=== PATIENT | female | born 1980 | race Caucasian/White ===

== ENCOUNTER 2017-04-13 09:51 | Inpatient (IN) | payer MEDICAID ==
[~2017-04-13] VITALS: Ht 147.3 cm; Wt 80.7 kg
[~2017-04-13 09:51] MED LIST: ACET-787 PO; ALPR2TAB1 PO; ATEN25TA7 PO; METO5SOL19 PO
[2017-04-13 09:54] VITALS: BP 140/91
--- NOTE | 2017-04-13 09:54 | NUR ---
Pt biba and placed in bed 1.
--- NOTE | 2017-04-13 10:00 | NUR ---
36/F biba found right outside of [facility]. Pt was seen at [facility] last night for back pain, according to EMS patient did not c/o to [facility] she was suicidal. Pt was discharged from [facility] and called 911 and requested to come to [facility] with complaints of suicidal ideation. Pt placed was placed on a 5150 by [facility]. Pt c/o having suicidal thoughts. Pt denies hearing voices. Pt states "I'm having an anxiety attack." Patient is cooperative, slightly anxious, follows commands, AOX4, clear speech. Patient in hospital gown. Personal belongings removed from room and stored in security office. Patient states desire to harm self. Potentially harmful items removed from room. Under direct observation of EMT Dago. Pt is waiting to be medically cleared to be transferred to a pyschiatric facility. VSS. Warm blanket provided. All needs addressed.
[2017-04-13 11:01] LABS: APPEARANCE,URINE CLEAR (CLEAR); BILIRUBIN,URINE NEGATIVE (NEGATIVE); BLOOD, URINE 3+ (NEGATIVE); LEUKOCYTE ESTERASE ,URINE NEGATIVE (NEGATIVE); NITRITE, URINE NEGATIVE (NEGATIVE); UGLUCOSE NEGATIVE (NEGATIVE)
[2017-04-13 11:04] LABS: COLOR,URINE STRAW (YELLOW)
--- NOTE | 2017-04-13 11:07 | NUR ---
lab at bedside for blood draw.
[2017-04-13 11:12] LABS: RBC,URINE 3-10 (FEW) /HPF (0-5); WBC,URINE 0-5 (RARE) /HPF (0-5)
[2017-04-13 11:19] LABS: BARBITURATE, URINE POS. ng/ml (NEG <=200); BENZODIAZEPINE, URINE NEG. ng/mL (NEG <=200); CANNABINOID, URINE NEG. ng/mL (NEG <=50); COCAINE, URINE NEG. ng/mL (NEG <=300); OPIATE, URINE NEG. ng/mL (NEG <=2000); PHENCYCLIDINE SCREEN,URINE NEG. ng/mL (NEG <=25)
[2017-04-13 11:26] LABS: BASOPHILS # (AUTO) 0.1 K/uL (0.00-0.22); BASOPHILS % (AUTO) 2.4 % (0.0-2.0); EOSINOPHILS # (AUTO) 0.3 K/uL (0-0.4); EOSINOPHILS % (AUTO) 5.6 % (0.0-4.0); HEMATOCRIT 33.4 % (36-48); HEMOGLOBIN 10.6 g/dL (12.0-16.0); LYMPHOCYTES # (AUTO) 1.7 K/uL (2.5-16.5); LYMPHOCYTES % (AUTO) 29.9 % (20.5-51.1); MEAN CORPUSCULAR HEMOGLOBIN 26 pg (27-31); MEAN CORPUSCULAR HGB CONC 32 g/dL (33-37); MEAN CORPUSCULAR VOLUME 81 fL (80-94); MONOCYTES # (AUTO) 0.4 K/uL (0.8-1.0); MONOCYTES % (AUTO) 7.4 % (1.7-9.3); NEUTROPHILS % (AUTO) 54.7 % (42.2-75.2); PLATELET COUNT (AUTO) 178 K/uL (140-450); RED BLOOD CELL COUNT(AUTO) 4.16 MIL/uL (4.20-5.40); RED CELL DISTRIBUTION WIDTH 14.3 % (11.6-13.7); WHITE BLOOD COUNT (AUTO) 5.5 K/uL (4.8-10.8)
[2017-04-13 11:37] LABS: ANION GAP 12.7 (8-16); CHLORIDE 104 mmol/L (98-107); CREATININE 0.6 mg/dL (0.6-1.3); GFR ARICAN-AMERICAN 144 mL/min (>90); GLUCOSE 89 mg/dL (74-106); POTASSIUM 3.7 mmol/L (3.5-5.1); SODIUM SERUM 142 mmol/L (136-145); UREA NITROGEN, BLOOD 8 mg/dL (7-18)
[2017-04-13] MEDS ORDERED: HALOPERIDOL IM 5 MG/ML VIAL IVP ONE (11:50)
[2017-04-13] MEDS ORDERED: diphenhydrAMINE 50 MG/ML VIAL IVP ONE (11:50)
[2017-04-13 11:52] LABS: ALBUMIN 3.8 g/dL (3.4-5.0); ASPARTATE AMINOTRANSFERASE 15 U/L (15-37); TOTAL BILIRUBIN 0.2 mg/dL (0.0-1.0)
--- NOTE | 2017-04-13 11:55 | NUR ---
Security called to bedside. Pt is yelling, standing outside of her room yelling "I'm in pain! No one is listening to me!"
[2017-04-13 11:56] LABS: SALICYLATE < 2.8 mg/dL (2.8-20.0)
[2017-04-13 11:57] LABS: ACETAMINOPHEN < 0.5 ug/ml (10-30)
[2017-04-13] MEDS ORDERED: diphenhydrAMINE 50 MG/ML VIAL IM ONE ×2 (12:05→12:35)
[2017-04-13] MEDS ORDERED: HALOPERIDOL IM 5 MG/ML VIAL IM ONE (12:05)
--- NOTE | 2017-04-13 12:05 | NUR ---
Security at bedside. Pt has been medicated as ordered. Pt continues to yell and cry. Sitter at bedside. Pt is back in bed yelling. Dr. Metz is aware.
--- NOTE | 2017-04-13 12:21 | NUR ---
Pt now resting quietly and comfortably. No distress noted.
--- NOTE | 2017-04-13 12:50 | NUR ---
Patient appears to be resting comfortably in bed. VSS.
--- NOTE | 2017-04-13 14:37 | NUR ---
Patient appears to be resting comfortably in bed. VSS.
--- NOTE | 2017-04-13 14:55 | NUR ---
Pt up to the bathroom with steady gait.
--- NOTE | 2017-04-13 15:10 | NUR ---
Pt noted resting comfortably in bed 1. No distress noted.
--- NOTE | 2017-04-13 16:15 | NUR ---
Pt ambulating to restroom with steady gait. VSS.
--- NOTE | 2017-04-13 17:27 | NUR ---
Pt continues to be resting comfortably at this time. VSS.
--- NOTE | 2017-04-13 18:30 | NUR ---
Patient appears to be resting comfortably in bed sleeping. VSS.
--- NOTE | 2017-04-13 19:26 | NUR ---
Pt report given to Mitch TALAMANTES. Transfer of care at this time.
--- NOTE | 2017-04-13 20:00 | NUR ---
PATIENT RESTING AT THIS TIME. NO SIGNS OF DISTRESS.
--- NOTE | 2017-04-13 21:00 | NUR ---
PATIENT RESTING AT THIS TIME. NO SIGNS OF DISTRESS.
--- NOTE | 2017-04-13 21:05 | NUR ---
5150 PPWK COMPLETED AND PLACED IN PT CHART.
--- NOTE | 2017-04-13 22:00 | NUR ---
PATIENT RESTING AT THIS TIME. NO SIGNS OF DISTRESS.
--- NOTE | 2017-04-13 23:00 | NUR ---
PATIENT RESTING AT THIS TIME. NO SIGNS OF DISTRESS.
[2017-04-13] MEDS ORDERED: ONDANSETRON 4 MG/2 ML VIAL IVP PRN (23:10)
[2017-04-13] MEDS ORDERED: LORazepam 2 MG/ML VIAL IVP PRN (23:10)
--- NOTE | 2017-04-14 | NUR ---
PATIENT RESTING AT THIS TIME. NO SIGNS OF DISTRESS.
--- NOTE | 2017-04-14 01:34 | NUR ---
APatient will be admitted to care of DR. MONTAÑO. Admited to M/S. Will go to room 109B. Belongings list completed. Report to ISHA TALAMANTES.
[2017-04-14 02:00] VITALS: BP 143/82
--- NOTE | 2017-04-14 02:00 | NUR ---
RECEIVED PT FROM ER PT IN STABLE CONDITION. NO S/S OF DISTRESS NOTED. PT AAOX4 ON ROOM AIR. PT DOES NOT HAVE IV ACCESS. SKIN IS INTACT. RESPIRATIONS ARE EVEN AND UNLABORED. SKIN IS WARM AND DRY TO TOUCH, COLOR WNL. BOWEL SOUNDS ARE PRESENT AND ACTIVE. LUNGS CLEAR BILATERALLY. PT STATED SHE DOES FEEL SUICIDAL AND "IT JUST IS AN OVERWHELMING FEELING." I ASKED PT IF SHE HAD A PLAN TO CARRY OUT PT STATED, "I DO NOT HAVE A PLAN." 1:[address] ALL SAFETY PRECAUTIONS MET, NEEDS MET, PT ORIENTED TO ROOM
--- NOTE | 2017-04-14 02:05 | NUR ---
PAGED DR. JACKSON BECAUSE PT STATES, "I AM IN A LOT OF PAIN IN MY BACK AND I NEED MY PERCOCET,I ALSO NEED MY ATIVAN NOW."
--- NOTE | 2017-04-14 02:10 | NUR ---
DR. JACKSON PAGED BACK WITH ORDERS, WILL CARRY OUT
[2017-04-14] MEDS: oxyCODONE/APAP 5/325 MG 1 TAB TAB PO PRN ×4 (02:14→20:30)
[2017-04-14] MEDS: LORazepam 1 MG TAB PO PRN ×3 (02:15→19:53)
--- NOTE | 2017-04-14 03:00 | NUR ---
PT RESTING IN BED COMFORTABLY NO S/S OF DISTRESS. NO SUICIDAL IDEATION AT THIS TIME, NO PLAN.
--- NOTE | 2017-04-14 04:30 | NUR ---
PT RESTING IN BED COMFORTABLY NO S/S OF DISTRESS. NO SUICIDAL IDEATION AT THIS TIME, NO PLAN.
--- NOTE | 2017-04-14 07:20 | NUR ---
REPORT GIVEN TO DIANE TALAMANTES FOR CONTINUITY OF CARE, PT IN STABLE CONDITION.
--- NOTE | 2017-04-14 07:25 | NUR ---
RECEIVED PATIENT REPORT AT BEDSIDE. PATIENT AWAKE AND ORIENTED. NO S/S OF DISTRESS. PATIENT ON ROOM AIR. PATIENT CALM AND COOPERATIVE AT THIS TIME. PATIENT WITH 1:1 SITTER
[2017-04-14 07:28] LABS: BASOPHILS # (AUTO) 0.1 K/uL (0.00-0.22); BASOPHILS % (AUTO) 1.5 % (0.0-2.0); EOSINOPHILS # (AUTO) 0.3 K/uL (0-0.4); EOSINOPHILS % (AUTO) 3.4 % (0.0-4.0); HEMATOCRIT 33.3 % (36-48); HEMOGLOBIN 10.7 g/dL (12.0-16.0); LYMPHOCYTES # (AUTO) 2.3 K/uL (2.5-16.5); MEAN CORPUSCULAR HEMOGLOBIN 26 pg (27-31); MEAN CORPUSCULAR HGB CONC 32 g/dL (33-37); MEAN CORPUSCULAR VOLUME 81 fL (80-94); MONOCYTES # (AUTO) 0.7 K/uL (0.8-1.0); MONOCYTES % (AUTO) 9.3 % (1.7-9.3); NEUTROPHILS # (AUTO) 4.1 K/uL (1.8-7.7); NEUTROPHILS % (AUTO) 54.8 % (42.2-75.2); PLATELET COUNT (AUTO) 181 K/uL (140-450); WHITE BLOOD COUNT (AUTO) 7.5 K/uL (4.8-10.8)
[2017-04-14 08:00] VITALS: BP 142/70
[2017-04-14] MEDS: ALPRAZolam 0.5 MG TAB PO SCH ×3 (08:23→16:26)
[2017-04-14] MEDS: ATENOLOL 25 MG TAB PO SCH (08:23)
[2017-04-14 08:48] LABS: ANION GAP 11.8 (8-16); CARBON DIOXIDE 29.8 mmol/L (21-32); CREATININE 0.6 mg/dL (0.6-1.3); POTASSIUM 3.6 mmol/L (3.5-5.1)
[2017-04-14] MEDS ORDERED: HYDROcodone/APAP 10/325 MG 1 TAB TAB PO SCH (09:00)
--- NOTE | 2017-04-14 09:18 | NUR ---
PATIENT HAS BEEN SCREENED AND CATEGORIZED MODERATE NUTRITION RISK. PATIENT WILL BE SEEN WITHIN 3-5 DAYS OF ADMISSION. 04/15/17-04/17/[address]
[2017-04-14 16:00] VITALS: BP 139/81
--- NOTE | 2017-04-14 18:30 | NUR ---
PATIENT BEING EVALUATED BY DR PASCUAL
[2017-04-14] MEDS ORDERED: oxyCODONE/APAP 5/325 MG 1 TAB TAB PO SCH (19:00)
--- NOTE | 2017-04-14 19:15 | NUR ---
RECD. PATIENT RESTING SITTING ON BED, AWAKE, A/OX4. RESPIRATION EVEN AND UNLABORED. NO IV LINE. REFUSED TO HAVE ONE INSERTED,STATED SHE CAN DRINK WATER. INQUIRED IF SHE STILL HAD INTENTION OF HURTING HERSELF, VERBALIZED YES, BUT NOT HEARING VOICES BUT FEELING LOTS OF ANXIETY, WORRIED ABOUT HIS SON. VERY EAGER TO TAKE PERCOCET FOR HER LOWER BACK PAIN, ASSURED WILL FOLLOW UP WITH PHARMACY AND WILL GIVE HER ONCE APPROVED. MORAL ENCOURAGEMENT GIVEN, PLAN OF CARE FOR THE SHIFT DISCUSSED. VERBALIZED UNDERSTANDING. CLAIMED BACK PAIN 09/05, WILL MEDICATE ORDERED.
--- NOTE | 2017-04-14 19:25 | NUR ---
PATIENT REPORT GIVEN AT BEDSIDE. PATIENT ENDORSED IN STABLE CONDITION
--- NOTE | 2017-04-14 19:26 | NUR ---
FOLLOW UP WITH PHARMACY TO APPROVE PERCOCET.
--- NOTE | 2017-04-14 19:53 | NUR ---
WITH ANXIETY, MEDICATED WITH ATIVAN 1 MG. PO.
--- NOTE | 2017-04-14 20:20 | NUR ---
INFORMED DR. MONTAÑO ORDER FOR PERCOCET NEED TO BE CHANGED FROM PRN AND SCHEDULED TO PRN, APPROVED.
--- NOTE | 2017-04-14 20:30 | NUR ---
HAPPY, PERCOCET GIVEN FOR HER BACK PAIN GIVEN.
--- NOTE | 2017-04-14 20:51 | NUR ---
WENT TO BR TO VOID 4 TIMES ALREADY, DENIES SMALL NOR PAINFUL URINATION.
--- NOTE | 2017-04-14 20:53 | NUR ---
DECREASED ANXIETY NOTED.
[2017-04-14] MEDS: ZOLPIDEM 10 MG TAB PO SCH (21:13)
--- NOTE | 2017-04-14 21:15 | NUR ---
WANTS TO BE ABLE TO SLEEP GOOD TONIGHT, MEDICATED WITH AMBIEN ORDERED.
--- NOTE | 2017-04-15 00:30 | NUR ---
AMBULATED TO BR TO VOID. BACK TO BED AFTER VOIDING. BACK TO SLEEP.
[2017-04-15 00:37] VITALS: BP 121/62
[2017-04-15] MEDS: oxyCODONE/APAP 5/325 MG 1 TAB TAB PO PRN ×3 (04:00→17:07)
--- NOTE | 2017-04-15 04:00 | NUR ---
WOKE UP, REQUESTED FOR PAIN MEDICATION. AMBULATED TO BR TO VOID, WENT BACK TO SLEEP.
[2017-04-15] MEDS: METOCLOPRAMIDE 10 MG/10 ML SYRP UDC PO PRN (05:03)
--- NOTE | 2017-04-15 05:03 | NUR ---
COMPLAINT OF STOMACH UPSET, MEDICATED WITH REGLAN ORDERED.
--- NOTE | 2017-04-15 06:03 | NUR ---
NO COMPLAINT OF STOMACH UPSET, SLEEPING COMFORTABLY.
[2017-04-15] MEDS: LORazepam 1 MG TAB PO PRN ×2 (06:09→21:39)
--- NOTE | 2017-04-15 06:30 | NUR ---
HOUSE FELLOW UNABLE TO GET SPECIMEN FOR AM LAB TEST, PATIENT HARD STICK.
--- NOTE | 2017-04-15 07:16 | NUR ---
NO NOTED SUICIDAL BEHAVIOR NOTED DURING SHIFT. CONDITION REMAIN STABLE. NEW SITTER MONITORING NEAR BEDSIDE. ENDORSED TO AM NURSES FOR CONTINUITY OF CARE.
--- NOTE | 2017-04-15 07:18 | NUR ---
PATIENT SEEN LYING COMFORTABLE ON BED.PATIENT IS COOPERATIVE AND CALM AT THIS TIME. PATIENT IS ON 1:1 OBSERVATION FOR SUICIDAL IDEATION. ALL SAFETY MEASURES IMPLEMENTED. WILL CONTINUE PATIENT TO MONITOR.
[2017-04-15 08:00] VITALS: BP 126/70
[2017-04-15] MEDS: ALPRAZolam 0.5 MG TAB PO SCH ×3 (08:55→17:57)
[2017-04-15] MEDS: ATENOLOL 25 MG TAB PO SCH (08:56)
[2017-04-15] MEDS: ACETAMINOPHEN 325 MG TAB PO PRN (08:57)
[2017-04-15 10:56] LABS: BASOPHILS # (AUTO) 0.1 K/uL (0.00-0.22); BASOPHILS % (AUTO) 0.6 % (0.0-2.0); EOSINOPHILS # (AUTO) 0.1 K/uL (0-0.4); EOSINOPHILS % (AUTO) 1.1 % (0.0-4.0); HEMATOCRIT 33.9 % (36-48); LYMPHOCYTES # (AUTO) 1.2 K/uL (2.5-16.5); LYMPHOCYTES % (AUTO) 13.1 % (20.5-51.1); MEAN CORPUSCULAR HEMOGLOBIN 26 pg (27-31); MEAN CORPUSCULAR HGB CONC 33 g/dL (33-37); MEAN CORPUSCULAR VOLUME 81 fL (80-94); MONOCYTES # (AUTO) 0.6 K/uL (0.8-1.0); MONOCYTES % (AUTO) 6.4 % (1.7-9.3); NEUTROPHILS # (AUTO) 7.5 K/uL (1.8-7.7); NEUTROPHILS % (AUTO) 78.8 % (42.2-75.2); PLATELET COUNT (AUTO) 196 K/uL (140-450); RED BLOOD CELL COUNT(AUTO) 4.18 MIL/uL (4.20-5.40); RED CELL DISTRIBUTION WIDTH 14.1 % (11.6-13.7); WHITE BLOOD COUNT (AUTO) 9.5 K/uL (4.8-10.8)
--- NOTE | 2017-04-15 11:00 | NUR ---
PATIENT IN BED SLEEPING. NO S/S OF DISTRESS NOTED.
[2017-04-15 11:04] LABS: ANION GAP 11.9 (8-16); CARBON DIOXIDE 30.1 mmol/L (21-32); CREATININE 0.6 mg/dL (0.6-1.3)
--- NOTE | 2017-04-15 13:00 | NUR ---
PATIENT IN BED SLEEPING. NO S/S OF DISTRESS NOTED.
[2017-04-15 16:00] VITALS: BP 141/90
--- NOTE | 2017-04-15 16:00 | NUR ---
PATIENT CALM AND COLLECTED. NO S/S DISTRESS NOTED
--- NOTE | 2017-04-15 19:25 | NUR ---
PATIENT REPORT GIVEN AT BEDSIDE. PATIENT ENDORSED IN STABLE CONDITION.
--- NOTE | 2017-04-15 19:26 | NUR ---
PATIENT IS CURRENTLY AWAKE ALERT EATING DINNER HAS NO IV LINE AT THIS TIME.WILL CONTINUE TO MONITOR.
--- NOTE | 2017-04-15 19:45 | NUR ---
Patient's Plan of Care was discussed and reviewed with EDITOR PUBLICATIONS: JOAQUIM CASTAÑEDA
--- NOTE | 2017-04-15 19:55 | NUR ---
PATIENT COMPLAINS OF FEELING NAUSEATED AND HAS AN ORDER FOR ZOFRAN BUT HAS NO IV LINE PATIENT AGREED TO HAVE AN IV LINE RESTARTED SO SHE CAN RECEIVE THE ZOFRAN.
[2017-04-15 20:00] VITALS: BP 125/73
--- NOTE | 2017-04-15 20:00 | NUR ---
AFTER ATTEMPTING 3TIMES TO RESTART HER IV LINE I WAS UNSUCCESSFUL I GET GOOD BLOOD RETURN BUT HER VEIN KEEPS BLOWING UP WHEN I FLUSH WITH NORMAL SALINE. I INFORMED COMMERCIAL ESTIMATOR NURSE ZONIA SHE WILL ATTEMPT TO RESTART IV LINE.
--- NOTE | 2017-04-15 20:15 | NUR ---
VINITA BRAR ATTEMPTED TO RESTART THE IV LINE BUT AFTER TRYING SEVERAL TIMES SHE WAS UNSUCCESSFUL.MD MONTAÑO PAGED.
[2017-04-15] MEDS: ZOLPIDEM 10 MG TAB PO SCH (20:31)
--- NOTE | 2017-04-15 20:48 | NUR ---
PATIENT DANYEL CALLED BACK AND INFORMED HIM THAT PATIENT WAS COMPLAINING OF NAUSEA AND I ATTEMPTED TO RESTART HER IV LINE AND ALSO DISTRIBUTED ENERGY SYSTEMS CONSULTANT NURSE ZONIA ATTEMPTED ALSO AND WE COULDN'T GET AN IV ACCESS/IV LINE.MD MONTAÑO ORDERED FOR PICCLINE AND CHANGED THE ZOFRAN FROM IV TO PO FORM WILL CARRY OUT THE NEW ORDERS.
--- NOTE | 2017-04-15 21:30 | NUR ---
DAM OPERATOR NURSE ZONIA AWARE THAT MD MONTAÑO WANTS PATIENT TO HAVE A PICCLINE INSERTED AND SHE SAID,"I WILL INFORM HOLLOCK MAKER VINITA SANDOVAL." PATIENT NAUSEA HAS SUBSIDED AT THIS TIME.
[2017-04-15] MEDS: ONDANSETRON 4 MG TAB PO PRN (21:39)
--- NOTE | 2017-04-15 21:42 | NUR ---
PATIENT AWAKE COMPLAINING OF RESTLESSNESS AND ANXIETY AND NAUSEA PATIENT WAS MEDICATED WITH ZOFRAN AND ATIVAN ORDERED.PATIENT WAS GIVEN SOME WARM BLANKETS AND SAFE ENVIRONMENT PROVIDED FOR THE PATIENT SITTER CONTINUES TO MONITOR THE PATIENT CLOSELY.WILL CONTINUE TO MONITOR.
--- NOTE | 2017-04-16 00:32 | NUR ---
PATIENT IS CURRENTLY SLEEPING IN BED. NOT VOICING SUICIDAL THOUGHTS OR ATTEMPTS AT THIS TIME.
[2017-04-16] MEDS: oxyCODONE/APAP 5/325 MG 1 TAB TAB PO PRN ×4 (03:05→22:19)
--- NOTE | 2017-04-16 03:20 | NUR ---
PATIENT AWAKE ON AND OFF CONTINUES TO BE MONITORED BY KAY HESTER AND MYSELF WILL CONTINUE TO MONITOR.
[2017-04-16] MEDS: LORazepam 1 MG TAB PO PRN ×2 (03:23→19:22)
[2017-04-16 04:15] VITALS: BP 97/50
[2017-04-16] MEDS: ONDANSETRON 4 MG TAB PO PRN (04:24)
--- NOTE | 2017-04-16 05:16 | NUR ---
PATIENT REFUSED TO SIGN THE PICCLINE CONSENT FORM. I EXPLAINED TO THE PATIENT WHAT IS A PICCLINE AND PATIENT STATES,"NO, I DON'T WANT THAT I WON'T SIGN THE CONSENT." I ASKED THE PATIENT ARE YOU REFUSING PICCLINE INSERTION PATIENT STATES,"YES,I WON'T SIGN IT." MEMBERSHIP SECRETARY NURSE VINITA BRAR INFORMED AND DIESEL DINKEY OPERATOR MARKOS INFORMED WELL. WILL CONTINUE TO MONITOR.
[2017-04-16] MEDS: ACETAMINOPHEN 325 MG TAB PO PRN ×2 (06:45→12:23)
--- NOTE | 2017-04-16 06:48 | NUR ---
PATIENT COMPLAINS OF HEADACHE PATIENT WAS MEDICATED WITH TYLENOL WILL CONTINUE TO MONITOR.
--- NOTE | 2017-04-16 07:33 | NUR ---
PATIENT STABLE RESTING IN BED SITTER 1:1 MCRAE AT BEDSIDE NEEDS MET.ENDORSED TO VINITA FISHER THAT PATIENT NEEDS TO HAVE HIS BLOOD DRAWN BUT REFUSED. PATIENT REFUSED PICCLINE ALSO.
--- NOTE | 2017-04-16 07:34 | NUR ---
RECEIVED PATIENT REPORT AT BEDSIDE. PATIENT ASLEEP IN BED WITH NO ACUTE DISTRESS AT THIS TIME. PATIENT IS 1:1 SITTER. SAFETY PRECAUTION IMPLEMENTED. BED LOWERED AND CALL LIGHT WITHIN REACH. WILL CONTINUE TO MONITOR.
[2017-04-16 08:00] VITALS: BP 148/85
--- NOTE | 2017-04-16 08:00 | NUR ---
V/S TAKEN AND RECORDED. PATIENT SEEN SITTING IN THE SIDE OF THE BED ASKING WHEN IS THE NEXT MEDICATION WILL BE GIVEN. PATIENT ABLE TO FOLLOW COMMAND. SITTER NEAR CLOSE BY FOR MONITORING.
[2017-04-16] MEDS: ALPRAZolam 0.5 MG TAB PO SCH ×3 (08:04→16:58)
--- NOTE | 2017-04-16 09:00 | NUR ---
PATIENT AGREED TO INSERT IV IN RIGHT UPPER ARM FOR MEDICATION ACCESS. SAFETY PRECAUTION IMPLEMENTED. WILL CONTINUE TO MONITOR.
[2017-04-16] MEDS: ATENOLOL 25 MG TAB PO SCH (09:08)
[2017-04-16] MEDS: ONDANSETRON 4 MG/2 ML VIAL IVP PRN ×2 (09:17→15:40)
[2017-04-16 10:54] LABS: HEMATOCRIT 37.4 % (36-48); HEMOGLOBIN 11.7 g/dL (12.0-16.0); MEAN CORPUSCULAR HEMOGLOBIN 26 pg (27-31); MEAN CORPUSCULAR HGB CONC 31 g/dL (33-37); MEAN CORPUSCULAR VOLUME 81 fL (80-94); RED BLOOD CELL COUNT(AUTO) 4.61 MIL/uL (4.20-5.40); RED CELL DISTRIBUTION WIDTH 14.4 % (11.6-13.7); WHITE BLOOD COUNT (AUTO) 8.8 K/uL (4.8-10.8)
[2017-04-16 11:05] LABS: PLATELET COUNT (AUTO) 169 K/uL (140-450)
--- NOTE | 2017-04-16 11:31 | NUR ---
PATIENT IN BED SLEEPING. BED IN LOW POSITION. CALL LIGHTS WITHIN REACH. NO S/S OF DISTRESS NOTED.
[2017-04-16 11:41] LABS: BASOPHILS % (MANUAL) 0 % (0-2); EOSINOPHILS % (MANUAL) 2 % (0-4); LYMPHOCYTES % (MANUAL) 21 % (20-46); MONOCYTES % (MANUAL) 3 % (5-12)
[2017-04-16 12:23] LABS: ANION GAP 12.5 (8-16); CARBON DIOXIDE 29.7 mmol/L (21-32); CREATININE 0.7 mg/dL (0.6-1.3); POTASSIUM 4.2 mmol/L (3.5-5.1)
[2017-04-16] MEDS: METOCLOPRAMIDE 10 MG/10 ML SYRP UDC PO PRN (14:54)
--- NOTE | 2017-04-16 15:30 | NUR ---
PATIENT SEEN SITTING ON THE SIDE OF THE BED. SUICIDAL PRECAUTION IMPLEMENTED. 1:1 SITTER. WILL CONTINUE TO MONITOR.
--- NOTE | 2017-04-16 16:00 | NUR ---
PATIENT WAS VERY DEMANDING AND ALWAYS KEEP ASKING WHEN HER NEXT MEDICATION AVAILABLE. JUST HAD MEDICATION GIVEN. INSTRUCTED PATIENT TO DO RELAXATION TECHNIQUE. SAFETY PRECAUTION IMPLEMENTED PER PROTOCOL.
--- NOTE | 2017-04-16 16:15 | NUR ---
SEEN PATIENT IN THE ROOM TALKING TO HER SITTER. NO S/S OF DISTRESS NOTED. WILL CONTINUE TO MONITOR.
--- NOTE | 2017-04-16 17:26 | NUR ---
PATIENT SEEN ASLEEP ON BED IN COMFORTABLE POSITION. BED IN LOW POSITION. CALL LIGHT WITHIN REACH.
--- NOTE | 2017-04-16 19:13 | NUR ---
PATIENT REPORT GIVEN AT BEDSIDE. PATIENT ENDORSED IN STABLE CONDITION.
--- NOTE | 2017-04-16 19:27 | NUR ---
PATIENT IS CURRENTLY RESTING IN BED AT THIS TIME.PATIENT HAS NO HALLUCINATIONS AT THIS TIME.PATIENT ISN'T VOICING TO HARM HERSELF OR HURT HERSELF OR ANYONE. PATIENT HAS IV SITE AND IS CURRENTLY PATENT. PATIENT CONSTANTLY ASKING WHEN SHE WILL GET HER PAIN MEDICATION.I EXPLAINED TO THE PATIENT THAT IS NOT TIME YET. SAFE ENVIRONMENT PROVIDED FOR THE PATIENT PATIENT BEING MONITORED CLOSELY.
--- NOTE | 2017-04-16 20:00 | NUR ---
Patient's Plan of Care was discussed and reviewed with STEAM SETTER: JOAQUIM CASTAÑEDA
[2017-04-16 20:10] VITALS: BP 125/71
[2017-04-16] MEDS: ZOLPIDEM 10 MG TAB PO SCH (20:42)
--- NOTE | 2017-04-16 20:44 | NUR ---
SOMEONE BY THE NAME OF DOMO CAME TO VISIT THE PATIENT DOMO STATES,"IM HER RODO." AND TOLD ME THAT HE CAME TO SEE THE PATIENT AND STAY WITH THE PATIENT FOR A SHORT WHILE AND THEN SAID THAT HE WANTED TO TALK TO THE DOCTOR AND ASKED WHEN MD WILL BE COMING TO SEE THE PATIENT,I TOLD HIM IF NOT THIS EVENING MAYBE TOMORROW. SO DOMO KOEHLER GAVE ME HIS NAME AND CONTACT NUMBER AND I TOLD HIM I WILL PLACE IT IN THE PATIENT'S CHART SO WHEN THE MD COMES IN HE CAN CALL HIM . DOMO VERBALIZED UNDERSTANDING AND THEN LEFT.
--- NOTE | 2017-04-16 22:07 | NUR ---
PATIENT IS CURRENTLY RESTING IN BED IN NO DISTRESS WILL CONTINUE TO MONITOR.CALL LIGHT WITHIN REACH.
--- NOTE | 2017-04-16 22:24 | NUR ---
PATIENT COMPLAINS OF MODERATE PAIN TO LOWER BACK AND WAS MEDICATED INDICATED WILL CONTINUE TO MONITOR.CALL LIGHT WITHIN REACH.WILL CONTINUE TO MONITOR.
[2017-04-17] VITALS: BP 122/65
--- NOTE | 2017-04-17 00:05 | NUR ---
PATIENT NOT ON SEQUENTIALS BECAUSE PATIENT IS AMBULATORY AND AMBULATES FREQUENTLY.
[2017-04-17] MEDS: ONDANSETRON 4 MG/2 ML VIAL IVP PRN ×2 (00:09→08:06)
--- NOTE | 2017-04-17 00:26 | NUR ---
PATIENT CURRENTLY STABLE NEEDS MET WALKS TO THE BATHROOM AND BACK TO BED.VINITA CANDELARIA HELPING SHE IS CURRENTLY THE SITTER 1:1.
[2017-04-17] MEDS: LORazepam 1 MG TAB PO PRN ×2 (00:34→06:21)
--- NOTE | 2017-04-17 02:12 | NUR ---
PATIENT IS CURRENTLY STABLE SLEEPING IN BED IN NO DISTRESS.
--- NOTE | 2017-04-17 04:30 | NUR ---
PATIENT IS CURRENTLY AWAKE AND SITTING AT THE EDGE OF THE BED.PATIENT ENCOURAGED TO STRETCH AND WALK IN HER ROOM. PATIENT THEN WENT STRAIGHT TO BED ONCE AGAIN. WILL CONTINUE TO MONITOR.
[2017-04-17 04:37] VITALS: BP 104/60
[2017-04-17] MEDS: oxyCODONE/APAP 5/325 MG 1 TAB TAB PO PRN (05:56)
--- NOTE | 2017-04-17 06:13 | NUR ---
PATIENT STABLE SLEEPING WELL IN BED.NEEDS MET.
[2017-04-17 07:05] LABS: BASOPHILS # (AUTO) 0.1 K/uL (0.00-0.22); BASOPHILS % (AUTO) 1.6 % (0.0-2.0); EOSINOPHILS # (AUTO) 0.3 K/uL (0-0.4); EOSINOPHILS % (AUTO) 3.8 % (0.0-4.0); HEMATOCRIT 36.6 % (36-48); HEMOGLOBIN 11.8 g/dL (12.0-16.0); LYMPHOCYTES # (AUTO) 2.1 K/uL (2.5-16.5); LYMPHOCYTES % (AUTO) 25.7 % (20.5-51.1); MEAN CORPUSCULAR HEMOGLOBIN 26 pg (27-31); MEAN CORPUSCULAR HGB CONC 32 g/dL (33-37); MEAN CORPUSCULAR VOLUME 81 fL (80-94); MONOCYTES # (AUTO) 0.6 K/uL (0.8-1.0); MONOCYTES % (AUTO) 6.9 % (1.7-9.3); PLATELET COUNT (AUTO) 242 K/uL (140-450); RED BLOOD CELL COUNT(AUTO) 4.53 MIL/uL (4.20-5.40); RED CELL DISTRIBUTION WIDTH 14.1 % (11.6-13.7); WHITE BLOOD COUNT (AUTO) 8.1 K/uL (4.8-10.8)
[2017-04-17 07:17] LABS: ANION GAP 11.9 (8-16); CARBON DIOXIDE 30.9 mmol/L (21-32); CREATININE 0.6 mg/dL (0.6-1.3); POTASSIUM 3.8 mmol/L (3.5-5.1)
--- NOTE | 2017-04-17 07:34 | NUR ---
PATIENT STABLE PATIENT RESTING IN BED AT THIS TIME NEED MET.SITTER AT BEDSIDE WITH THE PATIENT.NO SUICIDAL IDEATION OR ATTEMPT DURING THE NIGHT.
--- NOTE | 2017-04-17 07:35 | NUR ---
RECEIVED REPORT FROM DEPUTY TREASURER NURSE JOAQUIM AT BEDSIDE FOR CONTINUITY OF CARE. PT IS AWAKE AND ORIENTED. INTRODUCED SELF. PT DENIES SUICIDAL THOUGHTS OR PLAN. SITTER AT BEDSIDE. WILL CONTINUE TO MONITOR.
[2017-04-17] MEDS: ALPRAZolam 0.5 MG TAB PO SCH ×2 (08:07→13:38)
[2017-04-17] MEDS: ATENOLOL 25 MG TAB PO SCH (08:08)
[2017-04-17] MEDS: ACETAMINOPHEN 325 MG TAB PO PRN (08:50)
--- NOTE | 2017-04-17 09:30 | NUR ---
GAVE REPORT TO RUSLAN FROM [facility]. AWAITING FOR 5150 RENEWAL BY
--- NOTE | 2017-04-17 10:56 | NUR ---
FOLLOW UP RUSLAN FROM [facility] FOR A BED. SHE SAID THEY WILL ACCEPT HER TODAY AND RECEIVING MD IS DR. LARA. NEEDS [phone] FROM PSYCH DOCTOR. FAXED INFO TO DR. ROSE.
--- NOTE | 2017-04-17 11:10 | NUR ---
-RUSLAN DARIA, 5150 CERTIFICATE [id number] I GOT CALLED BY SCREW MACHINE TOOL SETTER TO EVALUATE PT PRIOR TO TRANSFER TO [facility]. INTERVIEW WAS CONDUCTED IN PT'S ROOM. WHEN ASKED "DO YOU HAVE ANY THOUGHTS OR PLANS TO HARM YOURSELF?" PT STATED "NO, I'M NOT SUICIDAL. I WANT TO GO HOME". PT STATED " LONG I GET MY MEDICATION, I WILL BE OKAY". I ASKED PATIENT "DO YOU HAVE A PRIOR PHYSICIAN?" PATIENT STATED "I NEED TO SET UP ONE" "DO YOU HAVE ANYONE AT HOME TO SUPPORT YOU?" PT STATED "YES, MY ." PT IS AWAKE, ALERT, ORIENT AND CALM DURING INTERVIEW. AT THIS POINT, PT IS NOT DEEMED TO BE SUICIDAL, NO 5150 HOLD WAS WRITTEN. PT ASKED FOR XANAX AND PERCOCET MEDICATION PRESCRIPTION TO GO HOME WITH. THE NURSE IN THE ROOM WAS AWARE OF PT'S REQUEST. SHE WILL CALL PHYSICIAN FOR PT'S REQUEST.
--- NOTE | 2017-04-17 11:54 | NUR ---
1055 MET WITH PT AND INFORMED HER THAT THERE IS POSSIBLY AN INPATIENT PSYCH BED AVAILABLE. PT STATED "I'M NOT SUICIDAL ANYMORE I DON'T WANT TO HURT MYSELF I JUST WANT TO GO HOME SO I'LL CALL MY BOYFRIEND". INFORMED JOHANA CHARGE NURSE AND RUSLAN ASSISTANT SURVEYOR THAT PT DENIES SUICIDAL IDEATION.
--- NOTE | 2017-04-17 12:00 | NUR ---
PAGED DR. Bro MONTAÑO. NO CALLBACK RECEIVED YET
--- NOTE | 2017-04-17 13:00 | NUR ---
PT DENIES SUICIDAL THOUGHTS OR PLAN. PT STATED "I AM NOT TRYING TO KILL MYSELF, I JUST WANT TO GO HOME." PT STARTED CRYING. TOLD PT THAT THERE IS PLAN FOR HER TO GO HOME, WAITING DR'S ORDER.
--- NOTE | 2017-04-17 13:30 | NUR ---
CALLED [facility] AND SPOKE WITH RUSLAN. PT WILL NOT BE TRANSFERRED TO FACILITY DUE TO NO 5150 HOLD AND PT WILL BE D/C TO GO HOME.
[2017-04-17] MEDS ORDERED: TRAZ-286 PO (13:38)
--- NOTE | 2017-04-17 15:17 | NUR ---
04/17/2017 RD INITIAL ASSESSMENT COMPLETED PLEASE REFER TO NUTRITION ASSESSMENT UNDER CARE ACTIVITY FOR ESTIMATED NUTRITIONAL NEEDS. PT TO RECEIVE GENERALLY HEALTHY DIET (2 GM NA), DIETARY AND NURSING STAFF TO ENCOURAGE INCREASED INTAKE. RD TO FOLLOW-UP IN 3-5 DAYS PATIENT IS MODERATE RISK. MAVERICK SMITH RD
--- NOTE | 2017-04-17 16:00 | NUR ---
GAVE D/C FORMS, INSTRUCTIONS, LABS, RX, AND FOLLOW UP APPOINTMENT. PT VERBALIZED UNDERSTANDING AND SIGNED FORMS. D/C IV TO R UPPER ARM 24G. IV CATHETER TIP INTACT. APPLIED DRESSING AND PRESSURE TO SITE. NO BLEEDING NOTED. REMOVED ID BAND. PAGED SECURITY AND HAD PERSONAL BELONGINGS DELIVERED TO PT. CHANGED IN OWN CLOTHES. PT WAITING FOR DISTRICT MANAGER IN TRAINING FROM FAMILY MEMBER. PT STATED HER [facility] WILL PICK HER UP.
--- NOTE | 2017-04-17 16:30 | NUR ---
PT D/C TO GO HOME. CAME TO FORMING DEPARTMENT END FINDER PT. ALL BELONGINGS AND RX, INSTRUCTIONS SENT WITH PT. AMBULATED OUT OF UNIT WITH STEADY GAIT. LEFT IN STABLE CONDITION.
== END 2017-04-17 16:30 | disposition home or self-care (01) | DRG 425 ==
LOC: MED 09:51 → MTU 23:01
PROVIDERS: ADMIT Preventive Medicine Preventive Medicine/Occupational Environmental Medicine; ATTEND Preventive Medicine Preventive Medicine/Occupational Environmental Medicine
DX: E83.51 Hypocalcemia (principal); R45.851 Suicidal ideations; I10 Essential (primary) hypertension; F20.9 Schizophrenia, unspecified; F31.60 Bipolar disorder, current episode mixed, unspecified; D64.9 Anemia, unspecified; J45.909 Unspecified asthma, uncomplicated; F41.1 Generalized anxiety disorder; G89.29 Other chronic pain; R31.9 Hematuria, unspecified; F40.01 Agoraphobia with panic disorder; R73.9 Hyperglycemia, unspecified; Z88.6 Allergy status to analgesic agent; Z88.0 Allergy status to penicillin; Z79.899 Other long term (current) drug therapy
CPT/HCPCS: 36415; 71045; 80048; 80053; 80305; 81001; 84703; 85025; 87081; 96372; 99285; G0480; G0482; J1200; J1630; J2405; J8597; Q0092; Q0162

== ENCOUNTER 2017-08-19 20:29 | Emergency (ER) | payer MEDICAID ==
[~2017-08-19] VITALS: Ht 147.3 cm; Wt 90.7 kg
[2017-08-19 20:29] VITALS: BP 128/68
[~2017-08-19 20:29] MED LIST changes: +TRAZ-286 PO
--- NOTE | 2017-08-19 20:29 | NUR ---
PATIENT BIB BLS TO ER BED 11.
--- NOTE | 2017-08-19 20:44 | NUR ---
PATIENT PRESENTS TO ED WITH BIBA WITH C/O OF PAIN IN THE LOWER ABD PAIN IN THE LEFT LOWER Q. BOWL SOUNDS WERE ACTIVE IN ALL X 4 Q . DENIES N/V/D; SKIN IS PINK/WARM/DRY; AAOX4 WITH EVEN AND STEADY GAIT; LUNGS CLEAR BL; HR EVEN AND REGULAR; PT DENIES ANY FEVER, CP, SOB, OR COUGH AT THIS TIME; PATIENT STATES PAIN OF 10/10 AT THIS TIME; VSS; PATIENT POSITIONED FOR COMFORT; HOB ELEVATED; BEDRAILS UP X2; BED DOWN. ER MD MADE AWARE OF PT STATUS.
[2017-08-19] MEDS ORDERED: LORazepam 2 MG/ML VIAL IVP ONE (21:05)
[2017-08-19] MEDS ORDERED: ONDANSETRON 4 MG/2 ML VIAL IVP ONE (21:05)
[2017-08-19] MEDS ORDERED: NACL 0.9% 1,000 ML IV SCH (21:05)
[2017-08-19] MEDS ORDERED: MORPHINE SULFATE 4 MG/ML SYR IVP ONE (21:05)
--- NOTE | 2017-08-19 21:21 | NUR ---
ct took pt
--- NOTE | 2017-08-19 21:34 | NUR ---
pt is back from bed from ct
[2017-08-19] MEDS ORDERED: LORazepam 1 MG TAB PO ONE (22:00)
[2017-08-19] MEDS ORDERED: ONDANSETRON 4 MG ODT PO ONE (22:00)
[2017-08-19] MEDS ORDERED: MORPHINE SULFATE 4 MG/ML SYR IM ONE (22:00)
--- NOTE | 2017-08-19 22:02 | NUR ---
UNABLE TO START PIV, [address] LAUREANO NOTIFIED. MEDS WILL BE CHANGED TO IM AND PO.
--- NOTE | 2017-08-19 22:28 | NUR ---
PT WAS WITH PT Addendum: 08/19/17 at 2238 by [email or web address] MD WAS WITH PT
[2017-08-19 22:55] VITALS: BP 128/68
--- NOTE | 2017-08-19 22:55 | NUR ---
Patient discharged with v/s stable. Written and verbal after care instructions given and explained. Patient alert, oriented and verbalized understanding of instructions. Ambulatory with steady gait. All questions addressed prior to discharge. ID band removed. Patient advised to follow up with PMD. Rx of ZOFRAN, given. Patient educated on indication of medication including possible reaction and side effects. Opportunity to ask questions provided and answered.
== END 2017-08-19 22:55 | disposition home or self-care (01) ==
LOC: MED 20:29
DX: R10.32 Left lower quadrant pain (principal); R11.0 Nausea; R19.7 Diarrhea, unspecified; I10 Essential (primary) hypertension; Z90.49 Acquired absence of other specified parts of digestive tract; Z79.899 Other long term (current) drug therapy; Z88.0 Allergy status to penicillin; Z88.8 Allergy status to other drugs, medicaments and biological substances
CPT/HCPCS: 74176; 81002; 81025; 96372; 99284; J2270; S0119

== ENCOUNTER 2017-09-10 23:30 | Emergency (ER) | payer MEDICAID ==
[~2017-09-10] VITALS: Ht 147.3 cm; Wt 128.9 kg
[2017-09-10 23:37] VITALS: BP 116/64
[2017-09-11] MEDS ORDERED: NACL 0.9% 1,000 ML IV ONE (00:23)
[2017-09-11] MEDS ORDERED: PROCHLORPERAZINE 10 MG/2 ML VIAL IVP ONE (00:25)
[2017-09-11] MEDS ORDERED: diphenhydrAMINE 50 MG/ML VIAL IVP ONE (00:25)
[2017-09-11 03:00] VITALS: BP 136/84
== END 2017-09-11 03:00 | disposition home or self-care (01) ==
LOC: MED 23:30
DX: F41.9 Anxiety disorder, unspecified (principal); R51 Headache; R10.32 Left lower quadrant pain; I10 Essential (primary) hypertension; Z90.89 Acquired absence of other organs; Z88.0 Allergy status to penicillin; Z88.6 Allergy status to analgesic agent; Z88.8 Allergy status to other drugs, medicaments and biological substances
CPT/HCPCS: 96374; 96375; 99285; J0780; J1200